=== PATIENT | male | born 1995 | race American Indian/Alaskan Native ===

== ENCOUNTER 2020-03-30 22:44 | Emergency (ER) | payer MEDICAID | END 2020-03-31 00:40 | disposition left against medical advice (07) | LOC: ED 22:44 | DX: R10.9 Unspecified abdominal pain (principal); R11.2 Nausea with vomiting, unspecified; Z53.21 Procedure and treatment not carried out due to patient leaving prior to being seen by health care provider ==

== ENCOUNTER 2020-05-10 15:59 | Emergency (ER) | payer MEDICAID ==
[2020-05-10] MEDS ORDERED: ACETAMINOPHEN 325 MG TAB PO ONE (16:50)
--- NOTE | 2020-05-10 16:57 | Event Note ---
ED Screening Note Date of service: 05/10/20 Time: 16:55 ED Screening Note: Patient complains of sore throat and swelling x3 days Fever 102.4 noted + Tachycardia Peritonsillar abscess versus peritonsillar cellulitis on exam This initial assessment/diagnostic orders/clinical plan/treatment(s) is/are subject to change based on patients health status, clinical progression and re- assessment by fellow clinical providers in the ED. Further treatment and workup at subsequent clinical providers discretion. Patient/guardian urged not to elope from the ED as their condition may be serious if not clinically assessed and managed. Initial orders include: CT Labs Tylenol
[2020-05-10 17:27] LABS: BUN/Creatinine Ratio 12; Basophils # (Auto) 0.1 K/mm3 (0.0-0.1); Basophils % (Auto) 0.5 % (0.0-1.8); Blood Urea Nitrogen 13 mg/dL (9-20); Eosinophils % (Auto) 0.2 % (0.0-4.3); Hemoglobin 15.4 gm/dl (11.8-15.2); Hemolysis Index 9; Lymphocytes # (Auto) 1.3 K/mm3 (1.2-5.4); Lymphocytes % (Auto) 7.1 % (13.4-35.0); Mean Corpuscular HGB Conc 34 % (32-34); Mean Corpuscular Volume 94 fl (84-94); Monocytes # (Auto) 2.4 K/mm3 (0.0-0.8); Platelet Count 319 K/mm3 (140-440); Red Blood Count 4.79 M/mm3 (3.65-5.03); Red Cell Distribution Width 12.8 % (13.2-15.2)
[2020-05-10] MEDS ORDERED: KETOROLAC 30 MG/1 ML INJ IV ONE (18:12)
[2020-05-10] MEDS ORDERED: cefTRIAXone/NS 1 GM/50 ML 1 GM/50 ML BAG IV ONE (18:12)
[2020-05-10] MEDS ORDERED: SODIUM CHLORIDE 0.9% 1000 ML 1,000 ML IV ONE (18:13)
--- NOTE | 2020-05-10 18:20 | Emergency Department Report ---
HPI - General Chief Complaint: Sore Throat Time Seen by Provider: 05/10/20 16:54 - HPI HPI: Formerly [facility], [facility] 24 The patient is a 24-year-old male present with a chief complaint of throat pain. The patient states for the past 3 days he has had pain and swelling in the right throat making it difficult to swallow. Patient denies history of fever. Of note the patient states he had his tonsils and adenoids removed approximately 1 month ago. Patient states he contacted his ENT about his current symptoms and saw the physicians but states they did not give any recommendations regarding his sore throat ED Past Medical Hx - Past Medical History Previous Medical History?: No - Surgical History Past Surgical History?: Yes Additional Surgical History: TOOTH / HERNIA, ADENOIDS REMOVED NASAL, TORSION - Family History Family history: no significant - Social History Smoking Status: Current Every Day Smoker (1/4 pack/day) Substance Use Type: None (Denies illicit drug use) - Medications Home Medications: Home Medications Medication Instructions Recorded Confirmed Last Taken Type Clindamycin [Clindamycin CAP] 300 mg PO Q6H #40 capsule 05/10/20 Unknown Rx HYDROcodone/APAP 7.5-325 [[place]] 15 ml PO Q4HR PRN #150 ml 05/10/20 Unknown Rx ED Review of Systems ROS: Stated complaint: TROUBLE SWALLOWING, DIZZY, EXTREMELY COLD Other details as noted in HPI Constitutional: denies: fever Eyes: denies: eye pain ENT: throat pain Respiratory: no symptoms reported Cardiovascular: denies: chest pain Endocrine: no symptoms reported Genitourinary: denies: dysuria Musculoskeletal: denies: back pain Neurological: denies: headache Physical Exam - Physical Exam Vital Signs: Vital Signs 05/10/20 16:50 Temperature 102.6 F H Pulse Rate 114 H Respiratory 18 Rate Blood Pressure 140/85 O2 Sat by Pulse 94 Oximetry Physical Exam: GENERAL: The patient is well-developed well-nourished male lying on stretcher not appearing to be in acute distress. [] HEENT: Normocephalic. Atraumatic. Extraocular motions are intact. Right peritonsillar fullness, uvula deviated to patient's left. Minimal trismus. Minimal voice alteration NECK: Supple. There is no stridor CHEST/LUNGS: There is no respiratory distress noted. HEART/CARDIOVASCULAR: Regular. There is tachycardia. ABDOMEN: There is no abdominal distention. SKIN: There is no rash. There is no edema. There is no diaphoresis. NEURO: The patient is awake, alert, and oriented. The patient is cooperative. The patient has no focal neurologic deficits. MUSCULOSKELETAL: There is no evidence of acute injury. ED Course Vital Signs 05/10/20 16:50 Temperature 102.6 F H Pulse Rate 114 H Respiratory 18 Rate Blood Pressure 140/85 O2 Sat by Pulse 94 Oximetry - Reevaluation(s) Reevaluation #1: 05/10/20 21:09 Patient informed of conversation with his ENT. Heart rate 102. - Consultations Consultation #1: 05/10/20 20:49 Patient's ENT paged ([phone]) 05/10/20 21:03 Case discussed with JONAH Donohue- he discussed the case with Dr. Arellano and states he can follow-up with the patient in the office tomorrow so patient should keep his appointment. Okay with switching patient to clindamycin ED Medical Decision Making - Lab Data Result diagrams: 05/10/20 16:59 05/10/20 16:59 Laboratory Tests 05/10/20 05/10/20 16:59 16:59 WBC 18.6 H RBC 4.79 Hgb 15.4 H Hct 45.0 MCV 94 MCH 32 MCHC 34 RDW 12.8 L Plt Count 319 Lymph % (Auto) 7.1 L [place] % (Auto) 13.0 H Eos % (Auto) 0.2 Baso % (Auto) 0.5 Lymph # (Auto) 1.3 [place] # (Auto) 2.4 H Eos # (Auto) 0.0 Baso # (Auto) 0.1 Seg Neutrophils % 79.2 H Seg Neutrophils # 14.7 H Sodium 138 Potassium 4.2 Chloride 100.6 Carbon Dioxide 22 Anion Gap 20 BUN 13 Creatinine 1.1 Estimated GFR > 60 BUN/Creatinine Ratio 12 Glucose 115 H Calcium 10.0 - Radiology Data Radiology results: report reviewed (CT neck), image reviewed (CT neck) [facility] [address] [place] [address] Cat Scan Report Signed Patient: APRIL MANZO MR#: [id number] : 1995 Acct:[id number] Age/Sex: 24 / M ADM Date: 05/10/20 Loc: ED Attending Dr: Ordering Physician: ALONZO WYNNE Date of Service: 05/10/20 Procedure(s): CT neck w con Accession Number(s): [id number] cc: ALONZO WYNNE . CT neck w con INDICATION / CLINICAL INFORMATION: 24 years Male; throat swelling, peritonsillar abscess/cellulitis. TECHNIQUE: Contiguous thin cut axial images obtained through the neck following IV contrast. Sagittal and coronal reconstructions performed by the technologist. All CT scans at this location are performed using CT dose reduction for ALARA by means of automated exposure control. COMPARISON: None available. FINDINGS: 1.9 cm phlegmon/early abscess developing in the tonsillar/peritonsillar region on the right. There is mild edema seen in the adjacent parapharyngeal space. There is mucosal/submucosal edema seen extending inferiorly along the oropharyngeal/hypopharyngeal wall, ipsilaterally. Mild fluid is seen in the retropharyngeal space on the right. There may be a small mucosal/submucosal abscess just superior to the attachment of the aryepiglottic fold on the right along the anterior wall of the julio c- /hypopharynx. This finding is just inferior to the level of the hyoid bone, and measures approximately 1 cm maximum dimension. Reactive lymph nodes seen, predominantly on the right. No suppurative nodes appreciated. [place] tonsils are markedly prominent in size, touching near the midline. MUCOSAL SPACE: Otherwise, the nasopharynx, oropharynx and vallecula, oral cavity and floor of mouth, hypopharynx, and larynx are grossly normal. LYMPH NODES: See above SALIVARY GLANDS: Parotid, submandibular, and visualized sublingual glands are within normal limits. THYROID GLAND: Unremarkable. PARANASAL SINUSES: Mild to moderate mucosal thickening seen in the ethmoids. There is moderate mucosal thickening in the right maxillary antrum. Desiccated secretions seen in the right frontal sinus. SPINE: No significant abnormality of the cervical spine appreciated. VASCULAR STRUCTURES: Vascular structures are grossly normal in appearance. ADDITIONAL FINDINGS: Surrounding soft tissues are otherwise grossly normal. IMPRESSION: 1. Findings consistent with a tonsillar/peritonsillar abscess on the right and a smaller mucosal/submucosal space abscess, as described above. Signer Name: Daniel Gibson MD, III Signed: 05/10/2020 7:32 PM Workstation Name: [id number] Transcribed By: HR Dictated By: Daniel Gibson MD Electronically Authenticated By: Daniel Gibson MD Signed Date/Time: 05/10/201931 DD/ 18 TD/TT: - Differential Diagnosis Peritonsillar abscess, Critical care attestation.: If time is entered above; I have spent that time in minutes in the direct care of this critically ill patient, excluding procedure time. ED Disposition Clinical Impression: Peritonsillar abscess, Throat pain in adult Disposition: DC-01 TO HOME OR SELFCARE Is pt being admited?: No Does the pt Need Aspirin: No Condition: Stable Instructions: Peritonsillar Abscess Additional Instructions: Return to the emergency department should you develop worsening symptoms, inability to tolerate food or liquids, high fever or any other concerns Prescriptions: Clindamycin [Clindamycin CAP] 300 mg PO Q6H #40 capsule HYDROcodone/APAP 7.5-325 [[place]] 15 ml PO Q4HR PRN #150 ml PRN Reason: Pain Referrals: Dr. Arellano, your ENT [Other] - 05/11/20 2:00 pm Time of Disposition: 21:11 (')
--- NOTE | 2020-05-10 19:33 | Cat Scan Report ---
. CT neck w con INDICATION / CLINICAL INFORMATION: 24 years Male; throat swelling, peritonsillar abscess/cellulitis. TECHNIQUE: Contiguous thin cut axial images obtained through the neck following IV contrast. Sagittal and jacobs l reconstructions performed by the technologist. All CT scans at this location are performed using CT dose reduction for ALARA by means of automated exposure control. COMPARISON: None available. FINDINGS: 1.9 cm phlegmon/early abscess developing in the tonsillar/peritonsillar region on the right . There is mild edema seen in the adjacent parapharyngeal space. There is mucosal/submucosal edema se en extending inferiorly along the oropharyngeal/hypopharyngeal wall, ipsilaterally. Mild fluid is seen in the retropharyngeal space on the right. There may be a small mucosal/submucosal abscess just superior to the attachment of the aryepiglottic fold on the right along the anterior wall of the julio c-/hypopharynx. This finding is just inferior to t he level of the hyoid bone, and measures approximately 1 cm maximum dimension. Reactive lymph nodes seen, predominantly on the right. No suppurative nodes appreciated. [place] tonsils are markedly prominent in size, touching near the midline. MUCOSAL SPACE: Otherwise, the nasopharynx, oropharynx and vallecula, oral cavity and floor of mouth, hypopharynx, and larynx are grossly normal. LYMPH NODES: See above SALIVARY GLANDS: Parotid, submandibular, and visualized sublingual glands are within normal limits. THYROID GLAND: Unremarkable. PARANASAL SINUSES: Mild to moderate mucosal thickening seen in the ethmoids. There is moderate mucosa l thickening in the right maxillary antrum. Desiccated secretions seen in the right frontal sinus. SPINE: No significant abnormality of the cervical spine appreciated. VASCULAR STRUCTURES: Vascular structures are grossly normal in appearance. ADDITIONAL FINDINGS: Surrounding soft tissues are otherwise grossly normal. IMPRESSION: 1. Findings consistent with a tonsillar/peritonsillar abscess on the right and a smaller mucosal/subm ucosal space abscess, as described above. Signer Name: Daniel Gibson MD, III Signed: 05/10/2020 7:32 PM Workstation Name: [employer]
[2020-05-10] MEDS ORDERED: LIDOCAINE 1%/EPINEPHRINE 1:100,000 VIAL (20 ML) INFILTRATI ONE (20:16)
[2020-05-10] MEDS ORDERED: LIDOCAINE VISCOUS 2% 15 ML ORAL LIQD ONE (20:21)
[2020-05-10] MEDS ORDERED: ONDANSETRON 4 MG/2 ML INJ ONE (20:25)
[2020-05-10] MEDS ORDERED: ONDANSETRON 4 MG/2 ML INJ IV ONE (20:31)
[2020-05-10] MEDS ORDERED: LIDOCAINE VISCOUS 2% 15 ML ORAL LIQD PO ONE (20:35)
[2020-05-10] MEDS ORDERED: CLINDAMYCIN 300 MG CAP PO ONE (21:04)
[2020-05-10 22:19] VITALS: BP 135/83
== END 2020-05-10 22:21 | disposition home or self-care (01) ==
LOC: ED 15:59
DX: J36 Peritonsillar abscess (principal); F17.200 Nicotine dependence, unspecified, uncomplicated; Z79.899 Other long term (current) drug therapy
CPT/HCPCS: 36415; 42999; 70491; 80048; 85025; 87040; 87116; 96361; 96365; 96375; 99284; J0696; J1885; J2405; J7030; Q9967

== ENCOUNTER 2020-05-12 03:31 | Emergency (ER) | payer MEDICAID ==
[2020-05-12] MEDS ORDERED: SODIUM CHLORIDE 0.9% 500 ML 500 ML IV ONE (04:32)
[2020-05-12] MEDS ORDERED: CLINDAMYCIN 600 MG/50 mL 600 MG/50 ML BAG IV ONE (04:47)
[2020-05-12] MEDS ORDERED: SODIUM CHLORIDE 0.9% 1000 ML IV SOLN IV ONE (04:47)
[2020-05-12 04:56] LABS: Hematocrit 41.2 % (35.5-45.6); Hemoglobin 14.6 gm/dl (11.8-15.2); Mean Corpuscular HGB Conc 36 % (32-34); Mean Corpuscular Volume 94 fl (84-94); Platelet Count 311 K/mm3 (140-440); Red Blood Count 4.39 M/mm3 (3.65-5.03); Red Cell Distribution Width 13.3 % (13.2-15.2)
--- NOTE | 2020-05-12 05:04 | XRay Report ---
CHEST 1 VIEW 05/12/2020 3:54 AM INDICATION / CLINICAL INFORMATION: possible Sepsis. COMPARISON: None available. FINDINGS: SUPPORT DEVICES: None. HEART / MEDIASTINUM: No significant abnormality. LUNGS / PLEURA: No significant pulmonary or pleural abnormality. No pneumothorax. ADDITIONAL FINDINGS: No significant additional findings. IMPRESSION: 1. No acute findings. Signer Name: Ricardo Joshua MD Signed: 05/12/2020 4:59 AM Workstation Name: [id number]
[2020-05-12 05:05] LABS: INR 1.25 (0.87-1.13)
[2020-05-12 05:19] LABS: Alanine Aminotransferase 36 units/L (7-56); Albumin 3.8 g/dL (3.9-5); BUN/Creatinine Ratio 11; Blood Urea Nitrogen 16 mg/dL (9-20); Calcium 9.9 mg/dL (8.4-10.2); Hemolysis Index 4
[2020-05-12] MEDS ORDERED: dexAMETHasone 4 MG/ML VIAL ONE (05:59)
[2020-05-12 06:23] LABS: Basophils % (Manual) 0 % (0.0-1.8); Eosinophils % (Manual) 0 % (0.0-4.3); Total Cells Counted 100
[2020-05-12 06:24] LABS: Platelet Estimate Consistent w Auto
--- NOTE | 2020-05-12 06:41 | Emergency Department Report ---
ED General Adult HPI - General Chief complaint: Fever Stated complaint: TROUBLE SWALLOWING PUI?: No Time Seen by Provider: 05/12/20 06:12 Source: patient, RN notes reviewed Mode of arrival: Ambulatory Limitations: No Limitations, Physical Limitation - History of Present Illness Initial comments: The patient was evaluated in the emergency department for symptoms described in the history of present illness. He/she was evaluated in the context of the global COVID-19 pandemic, which necessitated consideration that the patient m ight be at risk for infection with the virus that causes COVID-19. Institutional protocols and algorithms that pertain to the evaluation of patients at risk for COVID-19 are in a state of rapid change based on information released by regulatory bodies including the CDC and federal and state organizations. These policies and algorithms were followed during the patient's care in the emergency department. Please note that these policies, procedures and recommendations changed on a rapid basis. Patient is a 24-year-old gentleman. He was seen in this department 2 days ago, with a presumptive diagnosis of peritonsillar abscess, phlegmon, was initiated on antibiotics, and as per review of prior documentation, had an aspiration of right-sided peritonsillar abscess, with approximately 1 cc of pus. As per review of the prior chart, The case was discussed with the physician assistant therapy aide, working with a doctor Ayala. The aforementioned physician assistant therapy aide reportedly discussed the case with the aforementioned ENT, and outpatient management was advised. The patient reports that he saw his ENT yesterday. He was reportedly advised that he would not require surgical intervention. He was discharged with clindamycin, which he reports he has been able to take. However, he complains of 4 to 5 days of persistent inferior neck pain, and difficulty swallowing. Positive fever. No cough. No loss of taste or smell. No abdominal pain. No urinary symptoms. Symptoms constant, do not radiate anywhere, and worsen when he attempts to eat/drink. During the entire history and physical examination, I am accompanied by the patient's nurse, Mr. Ricardo Joshua -: days(s) Location: neck Consistency: constant Improves with: other Worsens with: other - Related Data Previous Rx's Medication Instructions Recorded Last Taken Type Acetaminophen 500 mg PO Q6HR PRN #1 bottle 05/12/20 Unknown Rx Clindamycin Palmitate HCl 300 mg PO Q6HR #1 soln.recon 05/12/20 Unknown Rx [Clindamycin Pediatric] Ibuprofen Oral Liqd [Motrin Oral 400 mg PO Q6HR PRN #1 bottle 05/12/20 Unknown Rx Liq 100 mg/5 ml] prednisoLONE [Prednisolone] 40 mg PO QDAY 7 Days #1 solution 05/12/20 Unknown Rx Allergies Allergy/AdvReac Type Severity Reaction Status Date / Time No Known Allergies Allergy Unverified 05/10/20 16:46 ED Review of Systems ROS: Stated complaint: TROUBLE SWALLOWING Other details as noted in HPI Constitutional: fever Eyes: denies: eye discharge ENT: throat pain. denies: ear pain, hearing loss, epistaxis Respiratory: denies: cough Endocrine: see HPI Genitourinary: as per HPI Musculoskeletal: as per HPI Skin: as per HPI Neurological: as per HPI Psychiatric: as per HPI Hematological/Lymphatic: as per HPI ED Past Medical Hx - Past Medical History Previous Medical History?: No - Surgical History Past Surgical History?: Yes Additional Surgical History: TOOTH / HERNIA, ADENOIDS REMOVED NASAL, TORSION - Social History Smoking Status: Current Every Day Smoker Substance Use Type: None - Medications Home Medications: Home Medications Medication Instructions Recorded Confirmed Last Taken Type Acetaminophen 500 mg PO Q6HR PRN #1 bottle 05/12/20 Unknown Rx Clindamycin Palmitate HCl 300 mg PO Q6HR #1 soln.recon 05/12/20 Unknown Rx [Clindamycin Pediatric] Ibuprofen Oral Liqd [Motrin Oral 400 mg PO Q6HR PRN #1 bottle 05/12/20 Unknown Rx Liq 100 mg/5 ml] prednisoLONE [Prednisolone] 40 mg PO QDAY 7 Days #1 solution 05/12/20 Unknown Rx ED Physical Exam - General Limitations: Physical Limitation General appearance: alert, in no apparent distress - Head Head exam: Present: atraumatic, normocephalic - Eye Eye exam: Present: normal appearance, EOMI. Absent: nystagmus - ENT ENT exam: Present: mucous membranes dry, normal external ear exam, other (Patient has dry mucous membranes. There is no stridor. The patient is dysphonic. There is mild trismus. There is elevation on the inferior aspect of the tongue.) - Neck Neck exam: Present: normal inspection, full ROM, lymphadenopathy. Absent: meningismus - Respiratory Respiratory exam: Present: normal lung sounds bilaterally. Absent: respiratory distress, wheezes, rales, rhonchi, stridor, decreased breath sounds - Cardiovascular Cardiovascular Exam: Present: normal rhythm, tachycardia, normal heart sounds. Absent: systolic murmur, diastolic murmur, rubs, gallop - GI/Abdominal GI/Abdominal exam: Present: soft. Absent: distended, tenderness, guarding, rebound, rigid, pulsatile mass - Rectal Rectal exam: Present: deferred - Extremities Exam Extremities exam: Present: normal inspection, full ROM, other (2+ pulses noted in the bilateral upper and lower extremities. There is no long bony tenderness. The muscular compartments are soft.). Absent: pedal edema - Back Exam Back exam: Present: normal inspection, full ROM. Absent: tenderness, CVA tenderness (R), CVA tenderness (L), paraspinal tenderness, vertebral tenderness - Neurological Exam Neurological exam: Present: alert, other (No facial droop. Tongue midline. Extraocular movements intact bilaterally. Facial sensation intact to light touch in V1, V2, V3 distribution bilaterally. 5 and a 5 strength in 4 extremities. Sensation intact to light touch in 4 extremities.) - Psychiatric Psychiatric exam: Present: normal affect - Skin Skin exam: Present: warm, dry, intact, normal color. Absent: rash ED Course Vital Signs 05/12/20 05/12/20 05/12/20 04:06 06:16 06:31 Temperature 102.3 F H Pulse Rate 112 H 97 H 98 H Respiratory 18 17 17 Rate Blood Pressure 144/85 126/72 O2 Sat by Pulse 91 97 Oximetry 05/12/20 06:45 Temperature Pulse Rate 97 H Respiratory 18 Rate Blood Pressure 126/72 O2 Sat by Pulse 96 Oximetry - Reevaluation(s) Reevaluation #1: 05/12/20 06:46 Differential diagnosis, including but not limited to: Abscess, phlegmon, retropharyngeal space infection, retropharyngeal space cellulitis Assessment and plan: 24-year-old gentleman with what appears to be clinically worsening deep space head and neck infection. Patient febrile and tachycardic. Patient is dysphonic, but protecting his airway at this time. Patient is alert, oriented, clinically sober, and exhibits decision-making capacity. He is free from distracting injury at this time. I have strongly advised IV fluids, steroids, and antibiotics, and transfer to a tertiary care center that can provide ENT consultation/evaluation. The patient is refusing this intervention. Patient cannot be admitted to this hospital, as we do not have ENT coverage. It is my opinion that this patient has an emergency medical condition which requires transfer to a tertiary care center with ENT coverage, for higher level of care. However, patient is refusing this intervention. Patient is alert, oriented, sober, and exhibits decision-making capacity. Extensive discussion had with patient regarding risk for airway compromise, decompensation, , paralysis, permanent loss of quality of life. I have gone back to this patient multiple times, and implored him to allow me to transfer for the aforementioned services. Unfortunately, the patient is refusing/declining at this time. Therefore, we will discharge AGAINST MEDICAL ADVICE, with clindamycin liquid, dexamethasone liquid, instructions to follow-up with an outpatient electrode cleaner as soon as possible. This entire conversation is witnessed by nurse Ricardo Joshua Reevaluation #2: 05/12/20 07:03 I have reached out to the patient's private ENT provider, and discussed the case with the physician assistant therapy aide Luther Donohue, working with Dr Arora I have discussed the patient's history, physical, laboratory studies and recent pertinent imaging studies. I have advised him that the patient has left AGAINST MEDICAL ADVICE, but that we strongly feel that the patient requires admission Mr. Donohue has indicated he will reach out to the patient expediently, and advised him of need/recommendation for admission, and ideally coordinate admission to [facility], where the ENT group has privileges. ED Medical Decision Making - Lab Data Result diagrams: 05/12/20 04:42 05/12/20 04:42 Vital Signs 05/12/20 04:06 Temperature 102.3 F H Pulse Rate 112 H Respiratory 18 Rate Blood Pressure 144/85 O2 Sat by Pulse 91 Oximetry Lab Results 05/12/20 05/12/20 05/12/20 Range/Units 04:42 04:42 04:42 WBC 23.2 H (4.5-11.0) K/mm3 RBC 4.39 (3.65-5.03) M/mm3 Hgb 14.6 (11.8-15.2) gm/dl Hct 41.2 (35.5-45.6) % MCV 94 (84-94) fl MCH 33 H (28-32) pg MCHC 36 H (32-34) % RDW 13.3 (13.2-15.2) % Plt Count 311 (140-440) K/mm3 Add Manual Diff Complete Total Counted 100 Seg Neuts % (Manual) 89.0 H (40.0-70.0) % Band Neutrophils % 0 % Lymphocytes % (Manual) 4.0 L (13.4-35.0) % Reactive Lymphs % (Man) 0 % Monocytes % (Manual) 7.0 (0.0-7.3) % Eosinophils % (Manual) 0 (0.0-4.3) % Basophils % (Manual) 0 (0.0-1.8) % Metamyelocytes % 0 % Myelocytes % 0 % Promyelocytes % 0 % Blast Cells % 0 % Nucleated RBC % Not Reportable Seg Neutrophils # Man 20.6 H (1.8-7.7) K/mm3 Band Neutrophils # 0.0 K/mm3 Lymphocytes # (Manual) 0.9 L (1.2-5.4) K/mm3 Abs React Lymphs (Man) 0.0 K/mm3 Monocytes # (Manual) 1.6 H (0.0-0.8) K/mm3 Eosinophils # (Manual) 0.0 (0.0-0.4) K/mm3 Basophils # (Manual) 0.0 (0.0-0.1) K/mm3 Metamyelocytes # 0.0 K/mm3 Myelocytes # 0.0 K/mm3 Promyelocytes # 0.0 K/mm3 Blast Cells # 0.0 K/mm3 WBC Morphology Not Reportable Hypersegmented Neuts Not Reportable Hyposegmented Neuts Not Reportable Hypogranular Neuts Not Reportable Smudge Cells Not Reportable Toxic Granulation Not Reportable Toxic Vacuolation Not Reportable Dohle Bodies Not Reportable Pelger-Huet Anomaly Not Reportable Angie Rods Not Reportable Platelet Estimate Consistent w auto Clumped Platelets Not Reportable Plt Clumps, EDTA Not Reportable Large Platelets Not Reportable Giant Platelets Not Reportable Platelet Satelliting Not Reportable Plt Morphology Comment Not Reportable RBC Morphology Not Reportable Dimorphic RBCs Not Reportable Polychromasia Not Reportable Hypochromasia Not Reportable Poikilocytosis Not Reportable Anisocytosis Not Reportable Microcytosis Not Reportable Macrocytosis Not Reportable Spherocytes Not Reportable Pappenheimer Bodies Not Reportable Sickle Cells Not Reportable Target Cells Not Reportable Tear Drop Cells Not Reportable Ovalocytes Not Reportable Helmet Cells Not Reportable [place] Bodies Not Reportable [place] Rings Not Reportable [place] Cells Not Reportable Bite Cells Not Reportable Crenated Cell Not Reportable Elliptocytes Not Reportable Acanthocytes (Spur) Not Reportable Rouleaux Not Reportable Hemoglobin C Crystals Not Reportable Schistocytes Not Reportable Malaria parasites Not Reportable Joe Bodies Not Reportable Hem Pathologist Commnt No PT 15.7 H (12.2-14.9) Sec. INR 1.25 H (0.87-1.13) VBG pH (7.320-7.420) Sodium 140 (137-145) mmol/L Potassium 4.5 (3.6-5.0) mmol/L Chloride 101.1 (98-107) mmol/L Carbon Dioxide 24 (22-30) mmol/L Anion Gap 19 mmol/L BUN 16 (9-20) mg/dL Creatinine 1.5 H (0.8-1.3) mg/dL Estimated GFR > 60 ml/min BUN/Creatinine Ratio 11 % Glucose 126 H (75-100) mg/dL Lactic Acid (0.7-2.0) mmol/L Calcium 9.9 (8.4-10.2) mg/dL Total Bilirubin 1.40 H (0.1-1.2) mg/dL AST 26 (5-40) units/L ALT 36 (7-56) units/L Alkaline Phosphatase 105 (35-129) units/L Total Protein 8.1 (6.3-8.2) g/dL Albumin 3.8 L (3.9-5) g/dL Albumin/Globulin Ratio 0.9 % 05/12/20 05/12/20 Range/Units 04:42 04:42 WBC (4.5-11.0) K/mm3 RBC (3.65-5.03) M/mm3 Hgb (11.8-15.2) gm/dl Hct (35.5-45.6) % MCV (84-94) fl MCH (28-32) pg MCHC (32-34) % RDW (13.2-15.2) % Plt Count (140-440) K/mm3 Add Manual Diff Total Counted Seg Neuts % (Manual) (40.0-70.0) % Band Neutrophils % % Lymphocytes % (Manual) (13.4-35.0) % Reactive Lymphs % (Man) % Monocytes % (Manual) (0.0-7.3) % Eosinophils % (Manual) (0.0-4.3) % Basophils % (Manual) (0.0-1.8) % Metamyelocytes % % Myelocytes % % Promyelocytes % % Blast Cells % % Nucleated RBC % Seg Neutrophils # Man (1.8-7.7) K/mm3 Band Neutrophils # K/mm3 Lymphocytes # (Manual) (1.2-5.4) K/mm3 Abs React Lymphs (Man) K/mm3 Monocytes # (Manual) (0.0-0.8) K/mm3 Eosinophils # (Manual) (0.0-0.4) K/mm3 Basophils # (Manual) (0.0-0.1) K/mm3 Metamyelocytes # K/mm3 Myelocytes # K/mm3 Promyelocytes # K/mm3 Blast Cells # K/mm3 WBC Morphology Hypersegmented Neuts Hyposegmented Neuts Hypogranular Neuts Smudge Cells Toxic Granulation Toxic Vacuolation Dohle Bodies Pelger-Huet Anomaly Angie Rods Platelet Estimate Clumped Platelets Plt Clumps, EDTA Large Platelets Giant Platelets Platelet Satelliting Plt Morphology Comment RBC Morphology Dimorphic RBCs Polychromasia Hypochromasia Poikilocytosis Anisocytosis Microcytosis Macrocytosis Spherocytes Pappenheimer Bodies Sickle Cells Target Cells Tear Drop Cells Ovalocytes Helmet Cells [place] Bodies [place] Rings [place] Cells Bite Cells Crenated Cell Elliptocytes Acanthocytes (Spur) Rouleaux Hemoglobin C Crystals Schistocytes Malaria parasites Joe Bodies Hem Pathologist Commnt PT (12.2-14.9) Sec. INR (0.87-1.13) VBG pH 7.467 H (7.320-7.420) Sodium (137-145) mmol/L Potassium (3.6-5.0) mmol/L Chloride (98-107) mmol/L Carbon Dioxide (22-30) mmol/L Anion Gap mmol/L BUN (9-20) mg/dL Creatinine (0.8-1.3) mg/dL Estimated GFR ml/min BUN/Creatinine Ratio % Glucose (75-100) mg/dL Lactic Acid 0.90 (0.7-2.0) mmol/L Calcium (8.4-10.2) mg/dL Total Bilirubin (0.1-1.2) mg/dL AST (5-40) units/L ALT (7-56) units/L Alkaline Phosphatase (35-129) units/L Total Protein (6.3-8.2) g/dL Albumin (3.9-5) g/dL Albumin/Globulin Ratio % - EKG Data -: EKG Interpreted by Wi EKG shows normal: sinus rhythm Rate: normal - EKG Data 05/12/20 06:46 Sinus rhythm, 97 bpm, normal axis, normal intervals, high left ventricular vo ltage. Abnormal EKG. Not a STEMI. No prior for comparison. - Radiology Data Radiology results: report reviewed, image reviewed Print Report Referring Physician: ALONZO WYNNE Patient Name: APRIL MANZO Date of : 1995 Sex: Male Report Date: 2020-05-10 Report Status: Finalized Findings [facility] [address] [place] [address] Cat Scan Report Signed Patient: APRIL MANZO MR#: [id number] : 1995 Acct:[id number] Age/Sex: 24 / M ADM Date: 05/10/20 Loc: ED Attending Dr: Ordering Physician: ALONZO WYNNE Date of Service: 05/10/20 Proc edure(s): CT neck w con Accession Number(s): [id number] cc: ALONZO WYNNE . CT neck w con INDICATION / CLINICAL INFORMATION: 24 years Male; throat swelling, peritonsillar abscess/cellulitis. TECHNIQUE: Contiguous thin cut axial images obtained through the neck following IV contrast. Sagittal and coronal reconstructions performed by the technologist. All CT scans at this location are performed using CT dose reduction for ALARA by means of automated exposure control. COMPARISON: None available. FINDINGS: 1.9 cm phlegmon/early abscess developing in the tonsillar/peritonsillar region on the right. There is mild edema seen in the adjacent parapharyngeal space. There is mucosal/submucosal edema seen extending inferiorly along the oropharyngeal/hypopharyngeal wall, ipsilaterally. Mild fluid is seen in the retropharyngeal space on the right. There may be a small mucosal/submucosal abscess just superior to the attachment of the aryepiglottic fold on the right along the anterior wall of the julio c- /hypopharynx. This finding is just inferior to the level of the hyoid bone, and measures approximately 1 cm maximum dimension. Reactive lymph nodes seen, predominantly on the right. No suppurative nodes appreciated. [place] tonsils are markedly prominent in size, touching near the midline. MUCOSAL SPACE: Otherwise, the nasopharynx, oropharynx and vallecula, oral cavity and floor of mouth, hypopharynx, and larynx are grossly normal. LYMPH NODES: See above SALIVARY GLANDS: Parotid, submandibular, and visualized sublingual glands are within normal limits. THYROID GLAND: Unremarkable. PARANASAL SINUSES: Mild to moderate mucosal thickening seen in the ethmoids. There is moderate mucosal thickening in the right maxillary antrum. Desiccated secretions seen in the right frontal sinus. SPINE: No significant abnormality of the cervical spine appreciated. VASCULAR STRUCTURES: Vascular structures are grossly normal in appearance. ADDITIONAL FINDINGS: Surrounding soft tissues are otherwise grossly normal. IMPRESSION: 1. Findings consistent with a tonsillar/peritonsillar abscess on the right and a smaller mucosal/submucosal space abscess, as described above. Signer Name: Daniel Gibson MD, III Signed: 05/10/2020 7:32 PM Workstation Name: [id number] Transcribed By: HR Dictated By: Daniel Gibson MD Electronically Authenticated By: Daniel Gibson MD Signed Date/Time: 1931 DD/ 18 TD/TT: Print Report Referring Physician: JAY EDGE III Patient Name: APRIL MANZO Date of : 1995 Sex: Male Report Date: 2020-05-12 Report Status: Finalized Findings [address] [address] XRay Report Signed Patient: APRIL MANZO MR#: [id number] : 1995 Acct:[id number] Age/Sex: 24 / M ADM Date: 05/12/20 Loc: ED Attending Dr: Ordering Physician: JAY EDGE III, MD Date of Service: 05/12/20 Procedure(s): XR chest 1V ap Accession Number(s): [id number] cc: JAY EDGE III, MD Fluoro Time In Minutes: CHEST 1 VIEW 05/12/2020 3:54 AM INDICATION / CLINICAL INFORMATION: possible Sepsis. COMPARISON: None available. FINDINGS: SUPPORT DEVICES: None. HEART / MEDIASTINUM: No significant abnorm ality. LUNGS / PLEURA: No significant pulmonary or pleural abnormality. No pneumothorax. ADDITIONAL FINDINGS: No significant additional findings. IMPRESSION: 1. No acute findings. Signer Name: Ricardo Joshua MD Signed: 05/12/2020 4:59 AM Workstation Name: [id number] Transcribed By: ALBERT Dictated By: Ricardo Joshua MD Electronically Authenticated By: Ricardo Joshua MD Signed Date/Time: 05/12/20458 DD/ 8 TD/TT: Critical care attestation.: If time is entered above; I have spent that time in minutes in the direct care of this critically ill patient, excluding procedure time. ED Disposition Clinical Impression: SIRS (systemic inflammatory response syndrome), Peritonsillar abscess, Throat pain in adult Disposition: DC-07 LEFT AGAINST MED ADVICE Is pt being admited?: No Does the pt Need Aspirin: No Condition: Undetermined Additional Instructions: As we discussed, you have left the hospital/emergency room AGAINST MEDICAL ADVICE. By leaving, you risked , disability, paralysis, permanent loss of quality of life. The ER is open 24 hours a day, 7 days a week. It never closes. Please return to the emergency room right away if and when you change your mind. If you decide not to return to the emergency room, please follow-up with the listed physician referrals as soon as possible. Please note the patient is suspected of having a deep space head and neck infection, which can be life-threatening. We have strongly recommended transfer to a tertiary care center/hospital that has ENT coverage. Patient has refused this intervention. It has been explained to the patient multiple times that refusal may result in worsening deep space head and neck infection, which can cause airway compromise, , disability, paralysis, loss of quality of life. Please follow-up with an outpatient ENT doctor as soon as possible, will please return to this emergency room right away if and when the patient changes his mind Prescriptions: Acetaminophen 500 mg PO Q6HR PRN #1 bottle PRN Reason: Fever >101 Clindamycin Palmitate HCl [Clindamycin Pediatric] 300 mg PO Q6HR #1 soln.recon Ibuprofen Oral Liqd [Motrin Oral Liq 100 mg/5 ml] 400 mg PO Q6HR PRN #1 bottle PRN Reason: Pain , Severe (7-10) prednisoLONE [Prednisolone] 40 mg PO QDAY 7 Days #1 solution Referrals: DEEPTI SHELBY MD [Staff Physician] - [facility] Forms: AMA Form
[2020-05-12 06:48] VITALS: BP 126/72
[2020-05-12 06:56] LABS: Bacteria,Urine 1+ /HPF (Negative); Bilirubin,Urine NEG (Negative); Blood,Urine SM (Negative); Color,Urine Amber (Yellow); Mucus,Urine 1+ /HPF
== END 2020-05-12 06:48 | disposition left against medical advice (07) ==
LOC: ED 03:31
DX: J36 Peritonsillar abscess (principal); R65.10 Systemic inflammatory response syndrome (SIRS) of non-infectious origin without acute organ dysfunction; F17.200 Nicotine dependence, unspecified, uncomplicated; Z98.890 Other specified postprocedural states; Z79.899 Other long term (current) drug therapy
CPT/HCPCS: 36415; 71045; 80053; 81001; 82140; 82805; 85007; 85025; 85610; 87040; 87086; 93005; 96365; 99284; J1100; J7030